=== PATIENT | female | born 1975 ===

== ENCOUNTER 2017-09-07 16:51 | Emergency (ER) | payer MEDICAID ==
[2017-09-07 16:58] VITALS: BMI 31.1
[2017-09-07 17:02] VITALS: RESP 18; O2SAT 98
--- NOTE | 2017-09-07 17:33 | C.PDOC ---
History Of Present Illness 42 year old female presents to the ED after being sent by her PMD for evaluation of anemia. Patient states she has been feeling tired and sleeping a lot. She admit she normally has heavy menstrual periods. Patient states currently, " I'm feeling fine." She denies fever, active bleeding, GI bleeding, diarrhea, abdominal pain, SOB, chest pain, chills, nausea, vomiting. Time Seen by Provider: 09/07/17 17:30 Chief Complaint (Nursing): Abnormal Labs History Per: Patient History/Exam Limitations: no limitations Onset/Duration Of Symptoms: Days Current Symptoms Are (Timing): Better Pain Scale Rating Of: 0 Recent travel outside of the [place]: No Past Medical History Reviewed: Historical Data, Nursing Documentation, Vital Signs Vital Signs: Last Vital Signs Temp 98 F 09/07/17 18:58 Pulse 78 09/07/17 18:58 Resp 18 09/07/17 18:58 BP 126/69 09/07/17 18:58 Pulse Ox 98 09/07/17 18:58 - Medical History PMH: Anemia, Asthma Surgical History: No Surg Hx Family History: States: Unknown Family Hx - Social History Hx Alcohol Use: No Hx Substance Use: No - Immunization History Hx Tetanus Toxoid Vaccination: No Hx Influenza Vaccination: Yes (2018) Hx Pneumococcal Vaccination: No Review Of Systems Except As Marked, All Systems Reviewed And Found Negative. Constitutional: Positive for: Malaise. Negative for: Fever, Chills Gastrointestinal: Negative for: Nausea, Vomiting Physical Exam - Physical Exam Appears: Non-toxic, No Acute Distress Skin: Normal Color, Warm, Dry, No Rash, No Ecchymosis Head: Atraumatic, Normacephalic Eye(s): bilateral: Normal Inspection, PERRL, EOMI Oral Mucosa: Moist Throat: No Erythema, No Exudate Neck: No Normal ROM, Supple Chest: Symmetrical, No Deformity, No Tenderness Cardiovascular: Rhythm Regular, No Friction Rub, No Murmur Respiratory: Normal Breath Sounds, No Rales, No Rhonchi, No Wheezing Gastrointestinal/Abdominal: Soft, No Tenderness Extremity: Normal ROM, No Tenderness, Capillary Refill (less than 2 seconds ), No Swelling Extremity: Bilateral: Normal Color And Temperature Neurological/Psych: Oriented x3, Normal Speech, Normal Cognition, Normal Motor Gait: Steady ED Course And Treatment - Laboratory Results Result Diagrams: 09/07/17 17:52 09/07/17 17:52 O2 Sat by Pulse Oximetry: 98 (on RA) Pulse Ox Interpretation: Normal Medical Decision Making Medical Decision Making: Progress: Bloodwork ordered and reviewed. Patient has hemoglobin count of 9.4 in ED. Labs were discussed with the patient. Copies were given to the patient. Repeat vitals are WNLs. Case discussed with Dr. Deal (covering for patient's PMD, Dr. Butler), who advises to discharge patient with instructions for outpatient f/u. Disposition - Disposition Referrals: Raciel Edwards MD [Staff Provider] - Laila Butler MD [Medical Doctor] - Liss Macias MD [Staff Provider] - Disposition: HOME/ ROUTINE Disposition Time: 18:53 Condition: STABLE Additional Instructions: Follow up with the medical doctor/clinic within 1-2 days without fail without fail. Return if worsened. Prescriptions: Docusate [Colace] 100 mg PO DAILY #30 cap Ferrous Sulfate [Slow Release Iron] 142 mg PO BID #60 tablet.er Instructions: Anemia Caused by Low Iron Forms: SYSTRAN (Setswana) - Clinical Impression Clinical Impression: Anemia - PA / DIFFERENTIAL SPECIALIST / Resident Statement MD/DO has reviewed & agrees with the documentation as recorded. - Scribe Statement The provider has reviewed the documentation as recorded by the Scribe (Mony Riley) All medical record entries made by the Scribe were at my direction and personally dictated by me. I have reviewed the chart and agree that the record accurately reflects my personal performance of the history, physical exam, medical decision making, and the department course for this patient. I have also personally directed, reviewed, and agree with the discharge instructions and disposition.
[2017-09-07 17:57] LABS: BASO # 0.1 K/uL (0.0-0.2); BASO % 0.8 % (0.0-2.0); EOS # 0.2 K/uL (0.0-0.7); EOS % 2.5 % (0.0-4.0); HEMOGLOBIN 9.4 g/dL (11.0-16.0); LYMPH # 3.1 K/uL (1.0-4.3); LYMPH % 31.6 % (20.0-40.0); MEAN CELL VOLUME 57.9 fL (81.0-99.0); MEAN CORPUSCULAR HEMOGLOBIN 17.7 pg (27.0-31.0); MEAN CORPUSCULAR HGB CONC 30.5 g/dL (33.0-37.0); MEAN PLATELET VOLUME 8.4 fL (7.2-11.7); MONO # 0.5 K/uL (0.0-0.8); MONO % 5.5 % (0.0-10.0); NEUT # 5.8 K/uL (1.8-7.0); NEUT % 59.6 % (50.0-75.0); RBC 5.32 Mil/uL (3.80-5.20); WHITE BLOOD COUNT 9.8 K/uL (4.8-10.8)
[2017-09-07 18:05] LABS: INR 0.9; PROTHROMBIN TIME 10.1 SECONDS (9.7-12.2)
[2017-09-07 18:12] LABS: ALBUMIN 3.9 g/dL (3.5-5.0); ALT/SGPT 47 U/L (9-52); AST/SGOT 28 U/L (14-36); BLOOD UREA NITROGEN 8 mg/dL (7-17); CALCIUM 8.2 mg/dl (8.6-10.4); GFR AFRICAN-AMERICAN > 60; GFR NON-AFRICAN AMERICAN > 60
[2017-09-07 18:59] VITALS: BP 126/69; PULSE 78; TEMP 98
== END 2017-09-07 18:59 | disposition home or self-care (01) ==
LOC: C.ER 16:51
DX: D64.9 Anemia, unspecified (principal)

== ENCOUNTER 2018-07-04 10:33 | Emergency (ER) | payer MEDICAID ==
[2018-07-04 10:34] VITALS: BMI 31.1
[2018-07-04 10:42] VITALS: O2SAT 100
[2018-07-04 11:19] LABS: URINE BILIRUBIN NEGATIVE (NEGATIVE); URINE BLOOD 3+ (NEGATIVE); URINE CLARITY Hazy (Clear); URINE COLOR Red (YELLOW); URINE GLUCOSE (UA) 3+ mg/dL (Normal); URINE LEUKOCYTE ESTERASE NEG Leu/uL (Negative); URINE PROTEIN 2+ mg/dL (NEGATIVE); URINE UROBILINOGEN NORMAL mg/dL (0.2-1.0)
[2018-07-04 11:21] LABS: HCG,QUALITATIVE URINE NEGATIVE (NEGATIVE)
[2018-07-04 11:31] LABS: BASO # 0.1 K/uL (0.0-0.2); BASO % 0.6 % (0.0-2.0); EOS # 0.3 K/uL (0.0-0.7); EOS % 2.7 % (0.0-4.0); LYMPH # 2.8 K/uL (1.0-4.3); LYMPH % 28.8 % (20.0-40.0); MEAN CORPUSCULAR HEMOGLOBIN 23.5 pg (27.0-31.0); MEAN PLATELET VOLUME 7.5 fL (7.2-11.7); MONO # 0.4 K/uL (0.0-0.8); MONO % 4.1 % (0.0-10.0); NEUT # 6.1 K/uL (1.8-7.0); NEUT % 63.8 % (50.0-75.0); RBC 5.37 Mil/uL (3.80-5.20); RED CELL DISTRIBUTION WIDTH 16.8 % (11.5-14.5); WHITE BLOOD COUNT 9.6 K/uL (4.8-10.8)
[2018-07-04] MEDS: Sodium Chloride 0.9% 1,000 ML IV ONE (11:35)
[2018-07-04 11:37] LABS: HEMOGLOBIN 12.6 g/dL (11.0-16.0); MEAN CELL VOLUME 73.5 fL (81.0-99.0)
[2018-07-04] MEDS ORDERED: Sodium Chloride 0.9% 1,000 ML ONE (11:37)
[2018-07-04 11:48] LABS: BLOOD UREA NITROGEN 11 mg/dL (7-17); CALCIUM 8.8 mg/dl (8.6-10.4); GFR NON-AFRICAN AMERICAN > 60
--- NOTE | 2018-07-04 12:47 | C.PDOC ---
History Of Present Illness 43 y/o female Hx of menorrhagia, NIDDM, comes in for evaluation of vaginal bleeding developed over the past 2-3 days. Patient reports she is s/p in April 2018 and this is the first menstrual period after delivery. Reports bleeding has been heavy for the past few days, and this morning it subsided somewhat. Otherwise patient denies any fever, weakness, dizziness, vertigo, abdominal pain, nausea, vomiting, back pain, UTI sx. Ambulatoyr in ED with stable gait, not in any apparent distress. Time Seen by Provider: 07/04/18 10:56 Chief Complaint (Nursing): Female Genitourinary History Per: Patient History/Exam Limitations: no limitations Onset/Duration Of Symptoms: Days Current Symptoms Are (Timing): Still Present Pain Scale Rating Of: 0 Alleviating Factors: None Abnormal Vaginal Bleeding: Yes Past Medical History Reviewed: Historical Data, Nursing Documentation, Vital Signs Vital Signs: Last Vital Signs Temp 97.6 F 07/04/18 10:38 Pulse 77 07/04/18 10:38 Resp 21 07/04/18 10:38 BP 187/89 H 07/04/18 10:38 Pulse Ox 100 07/04/18 10:38 - Medical History PMH: Anemia, Asthma, Diabetes Surgical History: Family History: States: Unknown Family Hx - Social History Hx Alcohol Use: No Hx Substance Use: No - Immunization History Hx Tetanus Toxoid Vaccination: Yes Hx Influenza Vaccination: Yes Hx Pneumococcal Vaccination: No Review Of Systems Constitutional: Negative for: Fever, Chills Eyes: Negative for: Vision Change Cardiovascular: Negative for: Palpitations, Light Headedness Respiratory: Negative for: Shortness of Breath Gastrointestinal: Negative for: Nausea, Vomiting, Abdominal Pain, Diarrhea Genitourinary: Positive for: Vaginal Bleeding. Negative for: Dysuria, Frequency Neurological: Negative for: Weakness, Numbness, Dizziness Physical Exam - Physical Exam Appears: Well, Non-toxic, No Acute Distress Skin: Normal Color, Warm, No Rash, No Ecchymosis Head: Normacephalic Eye(s): bilateral: PERRL Nose: Normal Oral Mucosa: Moist Neck: Trachea Midline, No Midline Cervical Tenderness, No Paracervical Tenderness, Supple Chest: Symmetrical Cardiovascular: Rhythm Regular, No Murmur, No JVD Respiratory: Normal Breath Sounds, No Rales, No Rhonchi, No Wheezing Gastrointestinal/Abdominal: Soft, No Tenderness, No Distention, No Guarding Back: No CVA Tenderness Extremity: Normal ROM, No Pedal Edema, No Calf Tenderness, No Deformity Neurological/Psych: Oriented x3, Normal Speech, Normal Cognition, Normal Cranial Nerves ED Course And Treatment - Laboratory Results Result Diagrams: 07/04/18 11:26 07/04/18 11:26 Lab Results: Urine Color Red (YELLOW) 07/04/18 11:06 Urine Clarity Hazy (Clear) 07/04/18 11:06 Urine pH 5.0 (5.0-8.0) 07/04/18 11:06 Ur Specific [place] 1.032 (1.003-1.030) H 07/04/18 11:06 Urine Protein 2+ mg/dL (NEGATIVE) H 07/04/18 11:06 Urine Glucose (UA) 3+ mg/dL (Normal) H 07/04/18 11:06 Urine Ketones Negative mg/dL (NEGATIVE) 07/04/18 11:06 Urine Blood 3+ (NEGATIVE) H 07/04/18 11:06 Urine Nitrate Negative (NEGATIVE) 07/04/18 11:06 Urine Bilirubin Negative (NEGATIVE) 07/04/18 11:06 Urine Urobilinogen Normal mg/dL (0.2-1.0) 07/04/18 11:06 Ur Leukocyte Esterase Neg Gerry/uL (Negative) 07/04/18 11:06 Urine RBC (Auto) 4945 /hpf (0-3) H 07/04/18 11:06 Urine HCG, Qual Negative (NEGATIVE) 07/04/18 11:06 Urine HCG, Qual Negative (NEGATIVE) 07/04/18 11:06 Lab Interpretation: No Acute Changes Urine POC: Negative O2 Sat by Pulse Oximetry: 100 (RA) Pulse Ox Interpretation: Normal Progress Note: Labs ordered and reviewed. IV fluids administered. On re-eval, pt is afebrile, hemodynamically stable. Non-toxic. Ambulatory in Ed with stable gait. Pt is asymptomatic in ED. Tolerate PO well in ED. PulseOx 100% on RA. ENT: no acute findings. Uvula midline, no edema. Neck: Supple, (-) JVD. Lungs: CTA B/L, BS equal B/L. CVS: (+)S1S2, reg, (-) murmur. Abd: Soft, non-tender. Neurologically intact. Blood work review and appears baseline, no evidence of anemia, no dehydration. UA- no evidence of UTI. results review and discussed with pt. Pt advised and ref. to f/u with MEDICATION MANAGER in 1-2 days for re-eavl. return to ED if any worsening or new changes. Disposition Counseled Patient/Family Regarding: Studies Performed, Diagnosis, Need For Followup, Rx Given - Disposition Referrals: Laila Butler MD [Medical Doctor] - Yuki Mathews MD [Staff Provider] - Disposition: HOME/ ROUTINE Disposition Time: 13:11 Condition: STABLE Additional Instructions: Encourage fluids Take Diabetic medication daily as scheduled Follow up with PMD, MEDICATION MANAGER in 2-3 days for re-evaluation. return to ED if any worsening or new changes. Instructions: Hyperglycemia, Adult, Heavy Periods Forms: [employer] (Hebrew) Print Language: TELUGU - Clinical Impression Clinical Impression: Hyperglycemia due to type 2 diabetes mellitus, Menorrhagia - PA / LOG HOOKER / Resident Statement MD/DO has reviewed & agrees with the documentation as recorded. - Scribe Statement The provider has reviewed the documentation as recorded by the Caitlin Grigsby All medical record entries made by the Caitlin were at my direction and personally dictated by me. I have reviewed the chart and agree that the record accurately reflects my personal performance of the history, physical exam, medical decision making, and the department course for this patient. I have also personally directed, reviewed, and agree with the discharge instructions and disposition.
[2018-07-04 13:28] VITALS: BP 127/88; PULSE 76; RESP 20; TEMP 97.4
== END 2018-07-04 13:27 | disposition home or self-care (01) ==
LOC: C.ER 10:33
DX: N92.0 Excessive and frequent menstruation with regular cycle (principal); E11.65 Type 2 diabetes mellitus with hyperglycemia
CPT/HCPCS: 80048; 81001; 84703; 85025; 96360; 99285; J7030